=== PATIENT | male | born 1955 | race Caucasian/White ===

== ENCOUNTER 2021-12-27 08:04 | Outpatient (CLI) | payer MEDICARE, SELFPAY ==
--- NOTE | 2021-12-27 08:00 | ECG_ITS ---
Measurements Intervals [place] Rate: 59 P: 36 ME: 185 QRS: 63 QRSD: 98 T: 27 QT: 371 QTc: 368 Interpretive Statements SINUS BRADYCARDIA WITH SINUS ARRHYTHMIA BORDERLINE R WAVE PROGRESSION, ANTERIOR LEADS BASELINE ARTIFACT- I, III, AVR, AVL, AVF BORDERLINE ECG Electronically Signed On 12-27-2021 8:28:22 [employer] by Hamzah Avila D.O.
[2021-12-27 09:08] LABS: Anion Gap 9 mmol/L (8-16); Blood Urea Nitrogen 26 mg/dL (9-20); Calcium 9.3 mg/dL (8.4-10.2); Carbon Dioxide 30 mmol/L (22-30); Chloride 102 mmol/L (98-107); Estimated Glomerular Filt Rate 41; Glucose 92 mg/dL (65-110); Sodium 141 mmol/L (137-145)
== END 2021-12-27 08:05 | disposition home or self-care (01) ==
LOC: ANHSURGERY 08:07
PROVIDERS: Anesthesiology; PCP Family Medicine; Visit Provider Surgery
DX: Z01.818 Encounter for other preprocedural examination (principal); I10 Essential (primary) hypertension; K42.9 Umbilical hernia without obstruction or gangrene
CPT/HCPCS: 36415; 80048; 86850; 86900; 86901; 93005

== ENCOUNTER 2022-01-01 01:00 | Day surgery (SDC) | payer MEDICARE, SELFPAY ==
--- NOTE | 2021-12-24 14:32 | PC.NURSE ---
Addendum entered by Danette Joseph RN 12/24/21 14:45: ARRIVE AT 0900 SURGERY AT 1100 ON 01/01/22 Original Note: Report to the Outpatient Waiting Room, entrance under the green pavilion located off [facility], at time on date . OR Time: . - You and your visitor will be asked a series of questions to screen for COVID 19 for your protection. - A mask is required within the hospital. - Only one visitor is allowed at this time. Patient visitors will be guided where to wait when not with patient. Preoperative COVID Testing Requirements: No COVID Test needed if: (proof is required; if not received patient will have Rapid Test prior to entry) - Patient has received COVID Vaccine at least 14 days prior to procedure date or - Patient has positive COVID test result within last 90 days of surgery date. COVID Test needed if above criteria is not met If not COVID vaccinated a COVID test must be conducted within 72 hours of surgery and patient is asked to isolate self from time of testing until procedure. You will go to the [facility] for your COVID testing. The [facility] site is located at the corner of [address] [facility]. You will only be called if COVID results are positive and your surgeon may reschedule your elective surgery date. Patients may have clear liquids (water, carbonated beverages, clear teas, apple juice) until 3 hours prior to surgery with a maximum of 20 ounces. - No food from midnight until time of surgery - Infants may have breast milk until 4 hours before surgery, infant formula 6 hours prior to surgery. - Children will be allowed to drink immediately following surgery. If applicable, please bring a bottle or sippy cup to assist with drinking. Juice, water, soda, and popsicles are readily available. For infants on formula, please bring formula the day of surgery. Pacifiers are allowed. Take the following medications with a SIP of water the morning of surgery: ____NONE Medications to discontinue per physician NONE Date to take last dose Please no make-up, nail hungarian, hairspray, perfume, deodorant, or body powder the day of surgery. No jewelry (including any body piercings) or valuables the day of surgery, leave them at home. Please take a shower or bath the night before, or the morning of, surgery with an antibacterial soap. Wear comfortable, loose fitting clothing. Children are encouraged to wear pajamas. - Jewelry must be removed prior to entering the operating room. Rings and piercings that are not removed may be cut off. - The hospital will not accept responsibility for valuables. - Please leave all valuables, including medications, at home the day of surgery. HIBICLENS SHOWER MORNING OF SURGERY If you are going home after surgery, a licensed milk tanker driver must drive you home. - NO public transportation without another adult. - We recommend that an adult stay with you for 24 hours following discharge. - We also recommend that you do not drive, make important decision, drink alcoholic beverages, or take any drugs that were not prescribed by your health care provider for at least 24 hours after your discharge time. For Pediatric surgeries, we recommend two adults accompany the child home (only one inside the building at this time). Follow any additional instructions given to you from your surgeon. Telephone instructions given to _PATIENT and asked if any additional questions and then verbalized understanding. Patient advised to call surgeon office or pre surgery nurse liaison [phone] if any additional questions.
[2021-12-24 14:39] VITALS: BMI 29.1
[2022-01-01] VITALS (8 sets, daily range): BP systolic 144–175; BP diastolic 74–90; PULSE 57–72; RESP 12–20; TEMP 36.2–36.6; O2SAT 98–100
[2022-01-01] MEDS: ACETAMINOPHEN 500 MG TABLET 1000 MG PO (08:56)
--- NOTE | 2022-01-01 09:10 | P.PNAN_ITS ---
Anes - Initial Pre Proc Eval Procedure: Operation Date: 01/01/22 11:00 Proposed Procedures p Laparoscopic Umbilical Hernia Repair Mesh, Davinci Assisted - Guanaco Bautista DO Date/Time: 01/01/22 09:10 Surgeon: Guanaco Bautista DO Pre Op Diagnosis: umbilical hernia Patient Data Age: 66 Gender: M Height: 1.93 m Weight: 106.4 kg Allergies Allergy/AdvReac Type Severity Reaction Status Date / Time grass pollen Allergy Unknown unknown Verified 12/24/21 14:27 mold Allergy Unknown unknown Verified 12/24/21 14:27 pollen extracts Allergy Unknown unknown Verified 12/24/21 14:27 Home Medications Medication Instructions Recorded Confirmed Type losartan 100 See Rx Instructions .ROUTE 04/13/21 01/01/22 Rx mg-hydrochlorothiazide 25 mg tablet .COMPLEX #90 tablet Patient hx anesthesia problems: none Family hx anesthesia problems: none Results Review: All pre-operative results and documents have been reviewed as part of the pre-operative evaluation. [facility] Past Medical History Medical History Hemorrhoids, internal High blood pressure Kidney stones ABRNEY on CPAP Surgical History Surgical History H/O elbow surgery LEFT ELBOW [place] teeth extracted Family History Family History Father Family history of lung cancer, Onset Age: 49 Mother Family history of coronary artery disease, Onset Age: 69 Hypertension Other Cancer Social History Social History Smoking status: Never smoker Second hand tobacco smoke exposure: No Alcohol intake: never Substance use: never Living arrangements: with family Additional living arrangements comments: Pt lives with and their 3 dogs. Additional occupation/education comments: [employer] Gender identity (if verbalized by the patient): Male Spiritual care concerns: No Anes - Eval Final PreProcedure Day of Procedure 01/01/22 09:10 Patient weight: overweight Heart: regular rate and rhythm Lungs: clear to auscultation Airway: Mallampati scale class II Neurological: alert and oriented Last oral intake: >/= 8 hours ASA classification: III Emergent: no Anesthetic plan: proceed Anesthesia type and monitoring: general ETT and standard monitoring Results Review: All pre-operative results and documents have been reviewed as part of the pre-operative evaluation. Informed Consent: The patient's anesthetic plan and its attendant risks and benefits were discussed with the patient/family/POA. Questions were solicited and answers provided to the satisfaction of the patient/family/POA.
[2022-01-01] MEDS: KETOROLAC 15 MG/ML VIAL (*BKC) IV PUSH (09:27)
[2022-01-01] MEDS: LACTATED RINGERS 1,000 ML 30 ML IV CONT ×2 (09:45→14:34)
--- NOTE | 2022-01-01 11:55 | WPDHPUPDATE1 ---
History and Physical Update Update Date/Time: 01/01/22 11:55 History and Physical has been reviewed, including an updated exam of the patient. There are NO changes in the patient's condition. Risks, benefits, and alternatives have been discussed and questions answered. Patient agrees to proceed with procedure.
--- NOTE | 2022-01-01 11:55 | PM.IMHP ---
H&P: HPI History of Present Illness Date/Time: 01/01/22 11:56 Chief Complaint: umbilical hernia Narrative: 66 yo man presents for umbilical hernia repair. He reports no changes since last seen in office. Review of Systems Review of Systems: All systems reviewed & are unremarkable except as noted in HPI and below Constitutional: Constitutional: Denies chills, Denies fever(s), Denies headache(s) and Denies weight loss Eyes: Eyes: Denies change in vision ENT: Denies dizziness, Denies headache(s), Denies neck mass and Denies throat swelling Cardiovascular: Cardiovascular: Denies chest pain, Denies lightheadedness and Denies dyspnea Respiratory: Respiratory: Denies cough, Denies dyspnea and Denies wheezing Gastrointestinal: Gastrointestinal: Denies abdominal pain, Denies change in bowel habits, Denies nausea and Denies vomiting Genitourinary: Genitourinary: Denies hematuria and Denies dysuria Musculoskeletal: Musculoskeletal: Reports as per HPI Integumentary/Breasts: Skin/Breast: Reports as per HPI Neurologic: Denies dizziness and Denies headache(s) Allergic/Immunologic: Allergic/Immunologic: Denies throat swelling and Denies wheezing REPLACED BY [facility] Past Medical History Medical History Hemorrhoids, internal High blood pressure Kidney stones BARNEY on CPAP Surgical History Surgical History H/O elbow surgery LEFT ELBOW [place] teeth extracted Family History Family History Father Family history of lung cancer, Onset Age: 49 Mother Family history of coronary artery disease, Onset Age: 69 Hypertension Other Cancer Social History Social History Smoking status: Never smoker Second hand tobacco smoke exposure: No Alcohol intake: never Substance use: never Living arrangements: with family Additional living arrangements comments: Pt lives with and their 3 dogs. Additional occupation/education comments: [employer] Gender identity (if verbalized by the patient): Male Spiritual care concerns: No Meds Home Medications and Allergies Home Medications Medication Instructions Recorded Confirmed Type losartan 100 See Rx Instructions .ROUTE 05/14/21 02/01/22 Rx mg-hydrochlorothiazide 25 mg tablet .COMPLEX #90 tablet Allergies Allergy/AdvReac Type Severity Reaction Status Date / Time grass pollen Allergy Unknown unknown Verified 12/24/21 14:27 mold Allergy Unknown unknown Verified 12/24/21 14:27 pollen extracts Allergy Unknown unknown Verified 12/24/21 14:27 Vital Signs Vital Signs - 24 hr 01/01/22 09:19 Temperature 36.6 C Pulse Rate 57 L Respiratory Rate 16 Blood Pressure 144/81 H Pulse Oximetry 98 Exam Const: General: no acute distress and alert Orientation/consciousness: patient oriented x3 HENMT: Head: normocephalic and atraumatic Ears: hearing grossly normal bilaterally General nose exam: Normal nares present Mouth: Yes Normal oral and palatal mucosa present Eyes: Periorbital: periorbital findings normal Sclera: sclerae normal EOM: EOMs intact bilaterally Neck: Neck: normal visual inspection, no lymphadenopathy and trachea midline Chest: Chest palpation & inspection: normal inspection of the chest Resp: Effort & Inspection: normal respiratory effort Auscultation: clear to auscultation bilaterally Cardio: Jugular venous distension: no JVD Rate: regular rate Rhythm: regular rhythm Heart sounds: S1 normal heart sound present and S2 normal heart sound present Peripheral pulses: Peripheral pulses 2+ throughout GI: Inspection: normal to inspection GI Palp: Yes Soft to palpation, No Tenderness to palpation present (GI), No Guarding due to palpation present (GI), Yes Hernia present (periumbilical) and No Rebound te
[2022-01-01] MEDS: ceFAZolin 2 GM/D5W 50 ML 2 GM/50 ML BAG IVPB (12:06)
--- NOTE | 2022-01-01 14:12 | W.PM.PROC2 ---
Procedure Note - Detailed Date of Procedure 01/01/22 Pre-op Diagnosis umbilical hernia Post-op Diagnosis other (Ventral and umbilical hernia) Procedure Performed Laparoscopic Ventral and Umbilical Hernia Repair with Mesh, da Lisa assisted Surgeon Guanaco Bautista DO Anesthesia general and local (Exparel) Indications This is a 66-year-old man who presented with a bulge near his umbilicus. He 1st noticed this several years ago but it was not causing any pain. Over the past 2 months he has noticed pain near the umbilicus and just above the umbilicus. On physical exam he was found to have an umbilical hernia. Discussions were made with the patient about treatment options and decision was made to proceed with robotic assisted laparoscopic umbilical hernia repair with mesh. Findings Upon inspecting the abdomen laparoscopically, I identified a 1 cm umbilical hernia and a 2 cm ventral hernia about 1 cm cephalad to the umbilicus. Both hernias were containing preperitoneal fat. A robotic intraperitoneal onlay mesh (rIPOM) technique was utilized. The preperitoneal fat was excised around the hernia defects and the falciform ligament was taken down far enough cephalad to allow for mesh placement. A Ventralight ST 15 cm x 10 cm mesh was placed. The hernia sac was excised and sent to the lab for pathology. Description of Procedure Procedure as well as risks, benefits, and alternatives were discussed with the patient. Written consent was obtained and placed in chart prior to procedure. Patient was brought back to surgical suite. He was placed supine on operating table. Time-out was done to confirm patient and procedure. He was then intubated by the anesthesia department. A bump was placed under his left hip, and the bed was flexed slightly to extend the space between his costal margin and iliac crest. His abdomen was prepped and draped in sterile fashion using chlorhexidine prep. A 5 millimeter incision was made in the left upper quadrant, and a 5 millimeter Optiview trocar was advanced through the abdominal layers under direct visualization. Once inside the abdominal cavity, carbon dioxide insufflation was used to create a pneumoperitoneum. His abdomen was inspected. An 8 millimeter incision was made in the left lower quadrant, and an 8 millimeter robotic trocar was placed under direct visualization. Another 8 millimeter incision was made in the left lateral abdomen, and an 8 millimeter robotic trocar was placed under direct visualization. Exparel was infiltrated along the lateral abdominal sawyer to perform a transversus abdominis plane block bilaterally. The 5 millimeter port was removed, the incision was extended to 12 millimeters, and a 12 millimeter air seal port was placed under direct visualization. A Ren-Beaver cone was also used to place an 0-Vicryl simple interrupted suture at this trocar site. The robotic arms were brought up to the patient's bedside and secured to the ports. The camera and instruments were inserted, and I then moved over to the robotic console and took control of the camera and instruments. After careful thorough inspection of the abdominal cavity, I began my dissection at the hernia. The preperitoneal fat was excised around the hernia defects using scissors with electrocautery. The falciform ligament was also taken down far enough cephalad to allow for mesh placement. I then measured the hernia size. The umbilical hernia measured 1 cm and the ventral hernia just cephalad to the umbilical hernia measured 2 cm. The fascia was closed using an 0-Stratafix running suture in a vertical fashion. A Ventralight ST 15 cm x 10 cm mesh was then placed within the abdominal cavity. This was oriented vertically with the mesh centered on the hernia defect. The mesh was then secured circumferentially using 2 0 V lock running absorbable suture. The repair was inspected, and one final inspection was made around the abdominal cavity. The
== END 2022-01-01 16:30 | disposition home or self-care (01) ==
PROVIDERS: PCP Family Medicine; Visit Provider Surgery
PROC: (CPT 49652; principal; 2022-01-01 11:00)
DX: K43.9 Ventral hernia without obstruction or gangrene (principal); K42.9 Umbilical hernia without obstruction or gangrene; I10 Essential (primary) hypertension; G47.33 Obstructive sleep apnea (adult) (pediatric)
CPT/HCPCS: 49652; S2900; 36415; 80048; 86850; 86900; 86901; 88302; 93005; A9270; C1781; C9290; J0690; J1170; J1885; J2250; J2370; J2405; J2704; J2710; J3010; J7120

== ENCOUNTER 2023-12-09 03:47 | Day surgery (SDC) | payer MEDICARE, SELFPAY ==
[2023-11-27 12:31] VITALS: BMI 29.0
--- NOTE | 2023-12-05 10:16 | SUR.PREOP ---
Patient called regarding upcoming procedure. Message left on voicemail regarding appointment times.
--- NOTE | 2023-12-08 14:58 | PM.HPGS ---
History of Present Illness History of Present Illness Consent: Risks, benefits, and alternatives have been discussed and questions answered. Patient agrees to proceed with procedure. Chief complaint: neoplasm screening Narrative: Jimmy Louis is a 68 year old male Referred for colon cancer screening. His last colonoscopy was 13 years ago. Review of Systems Review of Systems: All systems reviewed & are unremarkable except as noted in HPI and below PMFSH Past Medical History Medical History Hemorrhoids, internal High blood pressure Kidney stones BARNEY on CPAP Surgical History Surgical History H/O elbow surgery LEFT ELBOW H/O umbilical hernia repair 01/01/22 Laparoscopic Ventral and Umbilical Hernia Repair with Mesh, da Lisa assisted [place] teeth extracted Family History Family History Father Family history of lung cancer, Onset Age: 49 Mother Family history of coronary artery disease, Onset Age: 69 Hypertension Other Cancer Social History Social History Smoking status: Never smoker Second hand tobacco smoke exposure: No Alcohol intake: never Substance use: never Lack of Transportation: No Lack of Food: Never True Current Housing: I Have Housing Concerned About Future Housing: No Difficulty Paying Gas/Electric Bills: No Difficulty Paying for Meds: No Currently Unemployed: No Education: Trade/Vocational Certificate Difficulty w/ Childcare or Family Care: No Living arrangements: with family Additional living arrangements comments: Pt lives with and their 3 dogs. 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 Gender identity (if verbalized by the patient): Male Spiritual care concerns: No Meds Home Medications and Allergies Home Medications Medication Instructions Recorded Confirmed Type losartan 100 See Rx Instructions .Route 11/14/23 12/09/23 Rx mg-hydrochlorothiazide 25 mg tablet .COMPLEX #90 tabs Allergies Allergy/AdvReac Type Severity Reaction Status Date / Time grass pollen Allergy Unknown unknown Verified 12/09/23 08:09 mold Allergy Unknown unknown Verified 12/09/23 08:09 pollen extracts Allergy Unknown unknown Verified 12/09/23 08:09 Exam Const: General: alert Orientation/consciousness: patient oriented x3 Resp: Auscultation: clear to auscultation bilaterally Cardio: Rhythm: regular rhythm GI: GI Palp: Yes Soft to palpation and No Tenderness to palpation present (GI) Neuro: General: patient oriented x3 Assessment and Plan Assessment and plan (1) Colon cancer screening: Code(s): Z12.11 - Encounter for screening for malignant neoplasm of colon Status: Acute Assessment and Plan: Colonoscopy with possible biopsy or polypectomy or cautery or injection of substances.
[2023-12-09 07:50] VITALS: BP 117/78; PULSE 61; RESP 20; TEMP 35.9; O2SAT 97
[2023-12-09] MEDS: LACTATED RINGERS 1,000 ML 150 ML IV CONT (08:06)
--- NOTE | 2023-12-09 08:25 | WPDANESEPPF ---
Anes - Initial Pre Proc Eval Procedure: Operation Date: 12/09/23 09:00 Proposed Procedures p Screening Colonoscopy - Erickson Alcantara MD Date/Time: 12/09/23 08:25 Surgeon: Erickson Alcantara MD Pre Op Diagnosis: neoplasm screening Patient Data Age: 68 Gender: M Height: 1.93 m Weight: 104.9 kg Last Vital Signs Temp 96.7 F L 12/09/23 07:50 Pulse 61 12/09/23 07:50 Resp 20 12/09/23 07:50 BP 117/78 12/09/23 07:50 Pulse Ox 97 12/09/23 07:50 Allergies Allergy/AdvReac Type Severity Reaction Status Date / Time grass pollen Allergy Unknown unknown Verified 12/09/23 08:09 mold Allergy Unknown unknown Verified 12/09/23 08:09 pollen extracts Allergy Unknown unknown Verified 12/09/23 08:09 Home Medications Medication Instructions Recorded Confirmed Type losartan 100 See Rx Instructions .Route 11/14/23 12/09/23 Rx mg-hydrochlorothiazide 25 mg tablet .COMPLEX #90 tabs Patient hx anesthesia problems: none Family hx anesthesia problems: none Results Review: All pre-operative results and documents have been reviewed as part of the pre-operative evaluation. [facility] Past Medical History Medical History Hemorrhoids, internal High blood pressure Kidney stones BARNEY on CPAP Surgical History Surgical History H/O elbow surgery LEFT ELBOW H/O umbilical hernia repair 01/01/22 Laparoscopic Ventral and Umbilical Hernia Repair with Mesh, da Lisa assisted [place] teeth extracted Family History Family History Father Family history of lung cancer, Onset Age: 49 Mother Family history of coronary artery disease, Onset Age: 69 Hypertension Other Cancer Social History Social History Smoking status: Never smoker Second hand tobacco smoke exposure: No Alcohol intake: never Substance use: never Lack of Transportation: No Lack of Food: Never True Current Housing: I Have Housing Concerned About Future Housing: No Difficulty Paying Gas/Electric Bills: No Difficulty Paying for Meds: No Currently Unemployed: No Education: Trade/Vocational Certificate Difficulty w/ Childcare or Family Care: No Living arrangements: with family Additional living arrangements comments: Pt lives with and their 3 dogs. Occupation/Education: occupation Additional occupation/education comments: [employer] Gender identity (if verbalized by the patient): Male Spiritual care concerns: No Anes - Eval Final PreProcedure Day of Procedure 12/09/23 08:25 Patient weight: obese Heart: regular rate and rhythm Lungs: clear to auscultation Airway: Mallampati scale class III Neurological: alert and oriented Last oral intake: >/= 8 hours ASA classification: III Emergent: no Anesthetic plan: proceed Anesthesia type and monitoring: general GIVS and standard monitoring Results Review: All pre-operative results and documents have been reviewed as part of the pre-operative evaluation. Informed Consent: The patient's anesthetic plan and its attendant risks and benefits were discussed with the patient/family/POA. Questions were solicited and answers provided to the satisfaction of the patient/family/POA.
[2023-12-09 09:15] VITALS: BP 124/81; PULSE 66; RESP 17; O2SAT 94
[2023-12-09 09:25] VITALS: BP 115/81; PULSE 64; RESP 15; O2SAT 94
[2023-12-09 09:35] VITALS: BP 114/82; PULSE 64; RESP 16; O2SAT 94
== END 2023-12-09 09:41 | disposition home or self-care (01) ==
PROVIDERS: PCP Family Medicine; Visit Provider Internal Medicine Gastroenterology
PROC: 0DJD8ZZ Inspection of Lower Intestinal Tract, Via Natural or Artificial Opening Endoscopic (ICD-10-PCS; CPT 45378; principal; 2023-12-09 09:00)
DX: Z12.11 Encounter for screening for malignant neoplasm of colon (principal); K57.30 Diverticulosis of large intestine without perforation or abscess without bleeding; I10 Essential (primary) hypertension; G47.33 Obstructive sleep apnea (adult) (pediatric); E66.9 Obesity, unspecified; Z68.28 Body mass index [BMI] 28.0-28.9, adult
CPT/HCPCS: G0121; J2704; J7120